=== PATIENT | male | born 1985 | race Caucasian/White ===

== ENCOUNTER 2023-06-07 15:28 | Emergency (ER) | payer OTHER ==
[~2023-06-07] VITALS: Ht 172.7 cm; Wt 142.9 kg
== END 2023-06-07 17:29 | disposition home or self-care (01) ==
LOC: ED 15:28
DX: S93.602A Unspecified sprain of left foot, initial encounter (principal); I87.8 Other specified disorders of veins; X50.1XXA Overexertion from prolonged static or awkward postures, initial encounter; Y93.54 Activity, bowling; Y92.39 Other specified sports and athletic area as the place of occurrence of the external cause; Y99.8 Other external cause status